=== PATIENT | female | born 1940 | race Caucasian/White ===

== ENCOUNTER 2017-03-30 06:03 | Emergency (ER) | payer MEDICARE, OTHER ==
[~2017-03-30] VITALS: Ht 152.4 cm; Wt 60.0 kg
[~2017-03-30 06:03] MED LIST: ASPI81TA23 PO; CARV3.125 PO; L-THPOW PO; LEVO750T33 PO
[2017-03-30 06:05] VITALS: BP 185/90; PULSE 82; RESP 16; TEMP 98.8; O2SAT 95
[2017-03-30] MEDS ORDERED: D-3-50003 PO (06:14)
[2017-03-30] MEDS ORDERED: VITA500T83 PO (06:14)
[2017-03-30] MEDS ORDERED: ROSU1TAB8 PO (06:14)
[2017-03-30] MEDS ORDERED: SODIUM CHLORID 0.9% 500 ML INJ 500 ML IV ONE (06:45)
[2017-03-30] MEDS ORDERED: ONDANSETRON HCL 4 MG/2 ML VIAL IV PUSH ONE (06:45)
[2017-03-30] MEDS ORDERED: KETOROLAC TROMETHAMINE 30 MG/ML (IVP) VIAL IV PUSH ONE (06:45)
[2017-03-30 06:49] VITALS: RESP 16; O2SAT 98
--- NOTE | 2017-03-30 06:51 | PD ---
HPI Chief Complaint: Flank/Kidney Pain Time Seen by Provider: 06:12 Travel History International Travel<30 days: No Contact w/Intl Traveler<30days: No Traveled to known affect area: No History of Present Illness HPI The patient is a 77 year old female who presents to the [facility] emergency department with a history of left lower quadrant abdominal pain that began 3 days ago. The patient reports the pain is been coming and going. She denies any alleviating or aggravating factors. She reports that she has been more gassy than usual and has been taking Maalox. She reports that she was awakened from sound sleep at 2 AM with a recurrence of the pain. She reports that the pain is a dull sensation with intermittent sharp pains. She denies having any radiation of pain to other sites. She denies having any dysuria, urinary frequency, or urinary urgency. She does however report that a month ago she was 3 treated with a three-day course of antibiotics when she has symptoms of urinary tract infection. The patient denies having a prior history of kidney stones. She does report having a history of diverticulosis. She also reports having problems with her gallbladder. She reports that the location of the pain in the character of the pain is different from those prior episodes. 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 On review of systems otherwise , the patient denies having any fevers, cough, congestion, neck pain, chest pain , shortness of breath, vomiting, diarrhea, or neurologic symptoms. The patient reports that she last moved her bowels this morning. She denies having any recent constipation. She does have a history of chronic constipation that is treated with MiraLAX. [facility] Past Medical History Narrative Medical The patient's past medical history is significant for chronic constipation, coronary artery disease status post 2 prior stents being placed in January [address] Hayes, dyslipidemia, hypothyroid disorder, hypertension, history of diverticulosis Arthritis: Yes Asthma: No Autoimmune Disease: No Blood Disorders: No Anxiety: No Depression: No Heart Rhythm Problems: No Cancer: No Cardiovascular Problems: No High Cholesterol: Yes Chemotherapy: No Chest Pain: No Congestive Heart Failure: No COPD: No Cerebrovascular Accident: No Diabetes: No Endocrine: No Gastrointestinal Disorders: No (Miralax to keep bowel in control ) Genitourinary: No Headaches: No Hypertension: No Immune Disorder: No Implanted Vascular Access Dvce: No Kidney Stones: No Neurologic: No Psychiatric: No Reproductive: No Respiratory: Yes (hay fever) Migraines: No Radiation Therapy: No Renal Failure: No Seizures: No Sleep Apnea: No Thyroid Disease: Yes (takes levo) : 2 Para: 2 Past Surgical History Narrative Surgical The patient's past surgical history is significant for cardiac catheterization with 2 prior stents being placed, cataract surgery, carpal tunnel release, C- section 2. Abdominal Surgery: No Cardiac Surgery: No Section: Yes (X 2) Ear Surgery: No Endocrine Surgery: No Eye Surgery: Yes (LASIX and Cataracts) Genitourinary Surgery: No Gynecologic Surgery: No Neurologic Surgery: No Thoracic Surgery: No Other Surgery: No ( x 2) Social History Alcohol Use: No Tobacco Use: No Substance Use: No Allergies-Medications (Allergen,Severity, Reaction): Coded Allergies: morphine (Unverified Allergy, Severe, HIVES, 03/30/17) sodium hypochlorite solution (Unverified Allergy, Severe, DIFFICULTY BREATHING, 03/30/17) Sulfa (Sulfonamide Antibiotics) (Unverified Allergy, Unknown, 03/30/17) amlodipine (Unverified Allergy, Unknown, 03/30/17) atorvastatin (Unverified Allergy, Unknown, 03/30/17) pravastatin (Unverified Allergy, Unknown, 03/30/17) simvastatin (Unverified Allergy, Unknown, 03/30/17) tramadol (Unverified Allergy, Unknown, 03/30/17) Reported Meds & Prescriptions Reported Meds & Active Scripts Active Coreg (Carvedilol) 3.125 Mg Tab 6.25 Mg PO BID 30 Days Aspirin EC (Aspirin) 81 Mg Tabdr 81 Mg PO DAILY 30 Days Reported Vitamin C ER (Ascorbic Acid) 500 Mg Mónica 500 Mg PO Vitamin D3 Ultra Strength (Cholecalciferol) 5,000 Unit Cap 5,000 Units PO DAILY Rosuvastatin (Rosuvastatin Calcium) 20 Mg Tab 20 Mg PO DAILY L-Thyroxine (Bulk) (Levothyroxine (Bulk)) Bulk Pow 50 Mcg PO DAILY Review of Systems Except as stated in HPI: all other systems reviewed are Neg General / Constitutional: No: Fever Eyes: No: Visual changes HENT: No: Headaches Cardiovascular: No: Chest Pain or Discomfort Respiratory: No: Shortness of Breath Gastrointestinal: Positive: Abdominal Pain, Indigestion, No: Nausea, Vomiting, Diarrhea, Hematochezia, Changes in Bowel Habits, Loss of Appetite Genitourinary: No: Dysuria Musculoskeletal: No: Pain Skin: No Rash Neurologic: No: Weakness, Focal Abnormalities, Change in Mentation, Slurred Speech, Sensory Disturbance Psychiatric: No: Depression Endocrine: No: Polydipsia Hematologic/Lymphatic: No: Easy Bruising Physical Exam Narrative General: The patient is a well-developed well-nourished female in no acute distress. Head and Neck exam: Head is normocephalic atraumatic. Eyes: EOMI, pupils are equal round and reactive to light. Nose: Midline septum with pink mucous membranes Mouth: Dentition unremarkable. Moist mucus membranes. Posterior oropharynx is not erythematous. No tonsillar hypertrophy. Uvula midline. Airway patent. Neck: No palpable lymphadenopathy. No nuchal rigidity. No thyromegaly. Cardiovascular: Regular rate and rhythm without murmurs, gallops, or rubs. Lungs: Clear to auscultation bilaterally. No wheezes, rhonchi, or rales. Abdomen: Soft, tenderness on palpation reported in the left lower quadrant of the abdomen on deep palpation. No other tenderness on palpation of the other quadrants of the abdomen. No tenderness on palpation of McBurney's point. Normal bowel sounds are audible. No guarding, rebound, or rigidity. Negative Ni's sign. Extremities: No clubbing, cyanosis, or edema. 2+ pulses in all 4 extremities. No calf tenderness on palpation. Back: No spinous process tenderness to palpation. No costovertebral angle tenderness to palpation. Neurologic Exam: Grossly nonfocal. Skin Exam: No rash noted. Intact skin that is warm and dry. Data Data Last Documented VS Vital Signs Date Time Temp Pulse Resp B/P (MAP) Pulse Ox O2 Delivery O2 Flow Rate FiO2 03/30/17 06:49 16 98 Room Air 03/30/17 06:05 98.8 82 Orders Orders Electrocardiogram (03/30/17 06:36) Complete Blood Count With Diff (03/30/17 06:36) Comprehensive Metabolic Panel (03/30/17 06:36) Prothrombin Time / Inr (Pt) (03/30/17 06:36) Act Partial Throm Time (Ptt) (03/30/17 06:36) C-Reactive Protein (Crp) (1/2/18 06:36) Lipase (03/30/17 06:36) Urinalysis - C+S If Indicated (03/30/17 06:36) Magnesium (Mg) (03/30/17 06:36) Ct Abd/Pel W Iv Contrast(Rout) (03/30/17 06:36) Iv Access Insert/Monitor (03/30/17 06:36) Ecg Monitoring (03/30/17 06:36) Oximetry (03/30/17 06:36) Lactic Acid (03/30/17 06:36) Ketorolac Inj (Toradol Inj) (03/30/17 06:45) Sodium Chlorid 0.9% 500 Ml Inj (Ns 500 M (03/30/17 06:45) Ondansetron Inj (Zofran Inj) (03/30/17 06:45) Labs Laboratory Tests Test 03/30/17 06:40 03/30/17 06:45 Urine Color YELLOW Urine Turbidity CLEAR Urine pH 6.0 Urine Specific [place] 1.017 Urine Protein NEG mg/dL Urine Glucose (UA) NEG mg/dL Urine Ketones NEG mg/dL Urine Occult Blood SMALL Urine Nitrite NEG Urine Bilirubin NEG Urine Urobilinogen LESS THAN 2.0 MG/DL Urine Leukocyte Esterase TRACE Urine RBC 4 /hpf Urine WBC 1 /hpf Urine Squamous Epithelial Cells 4 /hpf Urine Mucus FEW /lpf Microscopic Urinalysis Comment CULT NOT INDICATED White Blood Count 6.2 TH/MM3 Red Blood Count 4.51 MIL/MM3 Hemoglobin 14.2 GM/DL Hematocrit 41.9 % Mean Corpuscular Volume 92.9 FL Mean Corpuscular Hemoglobin 31.5 PG Mean Corpuscular Hemoglobin Concent 33.9 % Red Cell Distribution Width 14.2 % Platelet Count 203 TH/MM3 Mean Platelet Volume 9.0 FL Neutrophils (%) (Auto) 53.9 % Lymphocytes (%) (Auto) 29.1 % Monocytes (%) (Auto) 11.5 % Eosinophils (%) (Auto) 4.4 % Basophils (%) (Auto) 1.1 % Neutrophils # (Auto) 3.4 TH/MM3 Lymphocytes # (Auto) 1.8 TH/MM3 Monocytes # (Auto) 0.7 TH/MM3 Eosinophils # (Auto) 0.3 TH/MM3 Basophils # (Auto) 0.1 TH/MM3 CBC Comment DIFF FINAL Differential Comment MDM Medical Decision Making Medical Screen Exam Complete: Yes Emergency Medical Condition: Yes Medical Record Reviewed: Yes Differential Diagnosis Kidney stone, versus pyelonephritis, versus diverticulitis, versus pancreatitis , versus constipation, versus trapped gas Narrative Course During the course of the patients emergency department visit, the patients history, examination, and differential diagnosis were reviewed with the patient. The patient was placed on a monitor tech with oximetry and frequent blood pressure monitoring. The patient had IV access obtained and blood work sent for analysis. The patient was placed on a monitor tech with oximetry and blood pressure monitoring. The patient had an ECG done on arrival that shows a sinus bradycardia heart rate of 47, Q waves are noted in V2, aVF, V5, V6. T waves are inverted in lead 3, V5 and V6. The EKG overall appears similar to a February 13, 2016 ECG. The patient was initially provided normal saline a 500 mL bolus 1, Toradol 15 mg IV, Zofran 4 mg IV. The patient was reexamined and feeling improved, blood pressure was also improved with pain control. Laboratory studies and imaging are pending at the conclusion of my shift, therefore the patient's case was checked out to the oncoming emergency physician. After the results of the laboratory studies and imaging are done, the patient will be dispositioned by Dr. Woo. Diagnosis Primary Impression: Abdominal pain Qualified Codes: R10.32 - Left lower quadrant pain Altagracia Hodges MD Mar 30, 2017 06:51
[2017-03-30 06:58] LABS: AUTOMATED NEUTROPHIL # 3.4 TH/MM3 (1.8-7.7); BASOPHIL # 0.1 TH/MM3 (0-0.2); BASOPHIL % 1.1 % (0.0-2.0); EOSINOPHIL # 0.3 TH/MM3 (0-0.4); EOSINOPHIL % 4.4 % (0.0-4.0); HEMATOCRIT 41.9 % (35.0-46.0); HEMOGLOBIN 14.2 GM/DL (11.6-15.3); LYMPH % 29.1 % (9.0-44.0); LYMPHOCYTE # 1.8 TH/MM3 (1.0-4.8); MEAN CELL VOLUME 92.9 FL (80.0-100.0); MEAN CORPUSCULAR HEMOGLOBIN 31.5 PG (27.0-34.0); MEAN CORPUSCULAR HGB CONC 33.9 % (32.0-36.0); MONO % 11.5 % (0.0-8.0); MONOCYTE # 0.7 TH/MM3 (0-0.9); NEUT % 53.9 % (16.0-70.0); PLATELET COUNT 203 TH/MM3 (150-450); RED BLOOD COUNT 4.51 MIL/MM3 (4.00-5.30); RED CELL DISTRIBUTION WIDTH 14.2 % (11.6-17.2); WHITE BLOOD COUNT 6.2 TH/MM3 (4.0-11.0)
[2017-03-30 07:04] LABS: BILIRUBIN, URINE NEG (NEG); BLOOD, URINE SMALL (NEG); GLUCOSE,URINE NEG (NEG); KETONE, URINE NEG (NEG); MUCUS URINE FEW /lpf (OCC); NITRITE,URINE NEG (NEG); SQUAMOUS EPITHELIAL CELL URINE 4 /hpf (0-5); URINE COLOR YELLOW (YELLW/STRAW); URINE LEUKOCYTE ESTERASE TRACE (NEG)
[2017-03-30 07:19] LABS: ALBUMIN 4.1 GM/DL (3.4-5.0); AST (GOT) 19 U/L (15-37); BICARBONATE 29.8 MEQ/L (21.0-32.0); BLOOD UREA NITROGEN 23 MG/DL (7-18); CALCIUM 9.4 MG/DL (8.5-10.1); CHLORIDE 106 MEQ/L (98-107); CREATININE 0.95 MG/DL (0.50-1.00); GLOMERULAR FILTRATION RATE 57 ML/MIN (>89); GLUCOSE,RANDOM 108 MG/DL (74-106); LIPASE 182 U/L (73-393); MAGNESIUM 2.6 MG/DL (1.5-2.5); SODIUM (NA) 140 MEQ/L (136-145)
[2017-03-30 07:23] LABS: ALKALINE PHOSPHATASE 71 U/L (45-117); ALT (GPT) 28 U/L (10-53); C-REACTIVE PROTEIN LESS THAN 0.29 MG/DL (0.00-0.30); TOTAL BILIRUBIN ADULT 0.5 MG/DL (0.2-1.0); TOTAL PROTEIN 7.8 GM/DL (6.4-8.2)
[2017-03-30] MEDS ORDERED: IOHEXOL 350 MG/ML 10 ML VIAL (for RAD DIAG) IVCONTRAST ONE (08:00)
[2017-03-30 08:01] VITALS: RESP 17
[2017-03-30 08:03] VITALS: BP 131/64; PULSE 52
--- NOTE | 2017-03-30 08:39 | RADRPT ---
EXAM DATE/TIME: 03/30/2017 07:56 [facility] COMPARISON: CT PULMONARY ANGIOGRAM, February 13, 2016, 12:52. INDICATIONS : Left lower abdomen pain for three days. IV CONTRAST: 72 cc Omnipaque 350 (iohexol) IV ORAL CONTRAST: No oral contrast ingested. RADIATION DOSE: 6.64 CTDIvol (mGy) MEDICAL HISTORY : Myocardial infarction. Diverticulosis. Hypothyroidism. SURGICAL HISTORY : section. ENCOUNTER: Initial ACUITY: 3 days PAIN SCALE: 7/10 LOCATION: Left lower quadrant TECHNIQUE: Volumetric scanning of the abdomen and pelvis was performed. Using automated exposure control and ad justment of the mA and/or kV according to patient size, radiation dose was kept as low as reasonably achievable to obtain optimal diagnostic quality images. DICOM format image data is available electro nically for review and comparison. FINDINGS: The visualized portion of lung bases demonstrate COPD changes. Heart appears mildly enlarged. There i s no pericardial or pleural effusion. The appearance of the liver, spleen, pancreas, adrenal glands and kidneys is within normal limits. In cidental note is made of a 1.6 cm simple cyst in the lower pole the left kidney. The abdominal aorta is at the upper limits of normal in size. There is mild diffuse atherosclerotic p laquing. There is no significant retroperitoneal lymphadenopathy identified. The examination demonstr ates scattered diverticuli throughout the sigmoid colon. No definite inflammatory changes are evident . There is liquid stool throughout the colon suggesting diarrhea. There is no free fluid within the pelvis. No iliac or inguinal adenopathy is present. The reproductiv e organs are intact. There degenerative changes throughout the spine. CONCLUSION: 1. Moderate amount of liquid stool within the colon suggesting diarrhea. 2. Scattered diverticuli in the sigmoid but no definite inflammatory changes. 3. No free intraperitoneal air or free intraperitoneal fluid identified. Cb Guzman MD on March 30, 2017 at 8:31 Board Certified Radiologist. This report was verified electronically.
[2017-03-30] MEDS ORDERED: METR-1 PO (08:57)
--- NOTE | 2017-03-30 08:57 | PD ---
Data Data Last Documented VS Vital Signs Date Time Temp Pulse Resp B/P (MAP) Pulse Ox O2 Delivery O2 Flow Rate FiO2 03/30/17 08:03 52 131/64 (86) 03/30/17 08:01 17 03/30/17 06:49 98 Room Air 03/30/17 06:05 98.8 Orders Orders Electrocardiogram (03/30/17 06:36) Complete Blood Count With Diff (03/30/17 06:36) Comprehensive Metabolic Panel (03/30/17 06:36) Prothrombin Time / Inr (Pt) (03/30/17 06:36) Act Partial Throm Time (Ptt) (03/30/17 06:36) C-Reactive Protein (Crp) (03/30/17 06:36) Lipase (03/30/17 06:36) Urinalysis - C+S If Indicated (03/30/17 06:36) Magnesium (Mg) (03/30/17 06:36) Ct Abd/Pel W Iv Contrast(Rout) (03/30/17 06:36) Iv Access Insert/Monitor (03/30/17 06:36) Ecg Monitoring (03/30/17 06:36) Oximetry (03/30/17 06:36) Lactic Acid (03/30/17 06:36) Ketorolac Inj (Toradol Inj) (03/30/17 06:45) Sodium Chlorid 0.9% 500 Ml Inj (Ns 500 M (03/30/17 06:45) Ondansetron Inj (Zofran Inj) (03/30/17 06:45) Iohexol 350 Inj (Omnipaque 350 Inj) (03/30/17 08:00) Labs Laboratory Tests Test 03/30/17 06:40 03/30/17 06:45 Urine Color YELLOW Urine Turbidity CLEAR Urine pH 6.0 Urine Specific [place] 1.017 Urine Protein NEG mg/dL Urine Glucose (UA) NEG mg/dL Urine Ketones NEG mg/dL Urine Occult Blood SMALL Urine Nitrite NEG Urine Bilirubin NEG Urine Urobilinogen LESS THAN 2.0 MG/DL Urine Leukocyte Esterase TRACE Urine RBC 4 /hpf Urine WBC 1 /hpf Urine Squamous Epithelial Cells 4 /hpf Urine Mucus FEW /lpf Microscopic Urinalysis Comment CULT NOT INDICATED White Blood Count 6.2 TH/MM3 Red Blood Count 4.51 MIL/MM3 Hemoglobin 14.2 GM/DL Hematocrit 41.9 % Mean Corpuscular Volume 92.9 FL Mean Corpuscular Hemoglobin 31.5 PG Mean Corpuscular Hemoglobin Concent 33.9 % Red Cell Distribution Width 14.2 % Platelet Count 203 TH/MM3 Mean Platelet Volume 9.0 FL Neutrophils (%) (Auto) 53.9 % Lymphocytes (%) (Auto) 29.1 % Monocytes (%) (Auto) 11.5 % Eosinophils (%) (Auto) 4.4 % Basophils (%) (Auto) 1.1 % Neutrophils # (Auto) 3.4 TH/MM3 Lymphocytes # (Auto) 1.8 TH/MM3 Monocytes # (Auto) 0.7 TH/MM3 Eosinophils # (Auto) 0.3 TH/MM3 Basophils # (Auto) 0.1 TH/MM3 CBC Comment DIFF FINAL Differential Comment Prothrombin Time 10.0 SEC Prothromb Time International Ratio 1.0 RATIO Activated Partial Thromboplast Time 24.0 SEC Blood Urea Nitrogen 23 MG/DL Creatinine 0.95 MG/DL Random Glucose 108 MG/DL Total Protein 7.8 GM/DL Albumin 4.1 GM/DL Calcium Level 9.4 MG/DL Magnesium Level 2.6 MG/DL Alkaline Phosphatase 71 U/L Aspartate Amino Transf (AST/SGOT) 19 U/L Alanine Aminotransferase (ALT/SGPT) 28 U/L Total Bilirubin 0.5 MG/DL Sodium Level 140 MEQ/L Potassium Level 3.9 MEQ/L Chloride Level 106 MEQ/L Carbon Dioxide Level 29.8 MEQ/L Anion Gap 4 MEQ/L Estimat Glomerular Filtration Rate 57 ML/MIN Lactic Acid Level 1.1 mmol/L C-Reactive Protein LESS THAN 0.29 MG/DL Lipase 182 U/L [facility] Medical Record Reviewed: Yes Supervised Visit with KAREN: No Differential Diagnosis colitis v diverticulitis v c dif colitis v uti Narrative Course risk factors for cdiff are recent use of levaquin, development of loose stools in patient who suffers from chronic constipation Diagnosis Primary Impression: Abdominal pain Qualified Codes: R10.32 - Left lower quadrant pain Additional Impression: suspect c diff colitis Patient Instructions: Clostridium Difficile Infection (ED), General Instructions Scripts Metronidazole (Flagyl) 500 Mg Tab 500 MG PO TID for Infection for 5 Days, #15 TAB 0 Refills Prov: Clinton Woo MD 03/30/17 Disposition: 01 DISCHARGE HOME Condition: Stable Clinton Woo MD Mar 30, 2017 08:57
--- NOTE | 2017-03-30 17:52 | EKG ---
Date Performed: 03/30/2017 Time Performed: 06:49:11 PTAGE: 77 years EKG: SINUS BRADYCARDIA INFERIOR MYOCARDIAL INFARCTION ANTEROLATERAL MYOCARDIAL INFARCTION ACU TE [place] PREVIOUS TRACING : 02/13/2016 11.02 Compared to prior tracing no significant change DOCTOR: Ahmet Finley Interpretating Date/Time 03/30/2017 17:50:51
== END 2017-03-30 10:36 | disposition home or self-care (01) ==
LOC: NEPE 06:03
DX: R10.32 Left lower quadrant pain (principal); K59.09 Other constipation; I10 Essential (primary) hypertension
CPT/HCPCS: 74177; 80053; 81001; 83605; 83690; 83735; 85025; 85610; 85730; 86140; 93005; 96361; 96374; 96375; 99285; J1885; J2405; J7040; Q9967

== ENCOUNTER → 2017-06-14 | Outpatient (CLI) | payer MEDICARE, OTHER ==
[~2017-06-14] MED LIST changes: +D-3-50003 PO; -LEVO750T33 PO; +METR-1 PO; +ROSU1TAB8 PO; +SINCALIDE 5 MCG/5 ML VIAL IV ONE; +VITA500T83 PO
--- NOTE | 2017-06-14 11:22 | RADRPT ---
EXAM DATE/TIME: 06/14/2017 08:52 [facility] COMPARISON: CT ABDOMEN & PELVIS W CONTRAST, March 30, 2017, 7:56. INDICATIONS : Ruq pain. DOSE: 4.3 mCi Tc99m Mebrofenin IV MEDICATION: 1.18 mcg Cholecystokinin IV; Similar symptomatic response. Cholecystokinin was administered by slow infusion over 8 minutes beginning at 60 minutes. MEDICAL HISTORY : Cardiovascular disease. Hypercholesterolemia. SURGICAL HISTORY : Coronary artery stent. section. ENCOUNTER: [facility] ACUITY: 4 - 6 months PAIN SCALE: 0/10 LOCATION: Right upper quadrant TECHNIQUE: Following the intravenous administration of radiotracer, dynamic sequential image were performed with continuous acquisition. Time-activity curves were generated. FINDINGS: HEPATIC KINETICS: There is prompt uptake of radiotracer in the liver. No focal defects are seen. There is normal rate of washout from the hepatic parenchyma. BILIARY CLEARANCE: Activity is first seen in the extrahepatic biliary system at 10-15 minutes. There is normal excretio n into the small bowel. GALLBLADDER: Activity is first seen in the gallbladder at 15-20 minutes. POST CHOLECYSTOKININ: After Cholecystokinin administration, there is transient emptying of the gallbladder with a 20 % ejec tion fraction. Common bile duct kinetics are normal and there is no evidence of biliary obstruction. BILIARY ENTERIC REFLUX: None observed. CLINICAL: The patient did experience abdominal pain with CCK administration CONCLUSION: Sluggish gallbladder response to cholecystokinin with symptomatology potentially indicative of chroni c cholecystitis Eduardo Ho MD on June 14, 2017 at 11:16 Board Certified Radiologist. This report was verified electronically.
== END ==
LOC: HRAD 08:00
PROVIDERS: ATTEND Surgery Trauma Surgery
DX: R10.11 Right upper quadrant pain (principal)
CPT/HCPCS: 78227; A9537; J2805

== ENCOUNTER → 2017-07-09 | Day surgery (SDC) | payer MEDICARE, OTHER ==
[~2017-07-09] MED LIST changes: +ACETAMINOPHEN 1000 MG/100 ML 100 ML IV ONE; +APREPITANT 40 MG CAP ONE; +KETOROLAC TROMETHAMINE 30 MG/ML (IVP) VIAL IV PUSH ONE; +LACTATED RINGER'S 1000 ML INJ 1,000 ML ONE; +MIDAZOLAM HCL 2 MG/2 ML VIAL ONE; +ONDANSETRON HCL 4 MG/2 ML VIAL IV PUSH ONE; +PROPOFOL 200 MG/20 ML AMP IV ONE; -SINCALIDE 5 MCG/5 ML VIAL IV ONE; +VANCOMYCIN HCL 1000 MG VIAL ONE; +ceFAZolin INJ 1,000 MG VIAL ONE
--- NOTE | 2017-07-09 11:51 | MP ---
cc: Kan Collazo MD,Nir Guerrero,Dulce Maria HEATON DATE OF OPERATION: 07/09/2017 PROCEDURE: Laparoscopic cholecystectomy. PREOPERATIVE DIAGNOSIS: Biliary dyskinesia. POSTOPERATIVE DIAGNOSIS: Biliary dyskinesia. SURGEON: Kan Collazo MD GLUE MACHINE OPERATOR: Yael Doyle MS-3 ESTIMATED BLOOD LOSS: Less than 10 mL. FLUIDS: 400 mL crystalloid. COMPLICATIONS: None. DRAINS: None. SPECIMENS: Gallbladder and contents to pathology PROCEDURE IN DETAIL: The patient was taken to the operating room, and placed on the operating table in the supine position. After an adequate level of general endotracheal anesthesia was achieved, the abdomen was prepped and draped in the usual fashion. Time-out was taken confirming the correct patient, site, and procedure to be performed. Skin and subcutaneous tissue was infiltrated with local anesthetic. An incision made in the umbilicus and carried through the fascia sharply. The peritoneal cavity was directly visualized. A 12 mm balloon trocar was inserted and the balloon inflated. The abdomen was insufflated. The patient was placed in reverse Trendelenburg position. Three 5 mm trocars were inserted, with the first to the right of the falciform ligament and second and third in the right subcostal region. All entered the abdominal cavity under direct vision uneventfully. The fundus of the gallbladder was then grasped and retracted upward. The cystic duct infundibular junction and cystic artery were circumferentially dissected. This patient had 2 branches of cystic artery going directly into the gallbladder. Each of these were dissected out separately, doubly clipped proximally, singly clipped on the gallbladder side and divided. As the patient had normal common duct caliber, normal liver function tests and no stones, and as the anatomy was clearly identified, no cholangiogram was obtained. The cystic duct was doubly clipped distally, singly clipped on the gallbladder side and divided. The gallbladder was dissected off of the liver bed with electrodissection. The intact gallbladder was placed into an Endo Catch device and passed off of the table after removing it via the umbilical port. The upper abdomen was revisualized. One small oozing point on the liver bed was controlled with electrocautery. With hemostasis assured and with the cystic artery stumps and cystic duct stump clean and dry, insufflation was discontinued. The upper abdominal trocars were removed under direct vision. No bleeding was noted from the trocar sites. The laparoscope and umbilical port were removed. The fascia in the umbilicus was closed with both simple interrupted and [id number] 0 Vicryl suture. Remaining local anesthetic was injected into each of the trocar sites. The skin was closed at each of the trocar sites with 4-0 Vicryl in an interrupted buried fashion. All trocar sites were dressed with Steri-Strips. The patient was extubated and taken back to the recovery room in stable condition. She tolerated the procedure well. MD JAJA Anand/MATTEO , 11:26 AM , 11:50 AM
== END | disposition home or self-care (01) ==
LOC: ESDC 07:43
PROVIDERS: ATTEND Surgery Trauma Surgery
DX: K82.8 Other specified diseases of gallbladder (principal)
CPT/HCPCS: 00790; 47562; 88304; J0131; J0690; J1885; J2250; J2405; J3010; J3370; J7120; J8501